=== PATIENT | female | born 1955 | race Caucasian/White ===

== ENCOUNTER → 2016-09-14 | Outpatient (CLI) | payer SELFPAY ==
--- NOTE | 2016-09-15 09:05 | RAD ---
EXAM DESCRIPTION: Abdomen radiography. CLINICAL HISTORY: Renal stone COMPARISON: September 16, 2015 TECHNIQUE: One view. FINDINGS: Bowel gas pattern is non-obstructed. There is no obvious free intraperitoneal air. Visualized segments of the abdominal organs are unremarkable. No suspicious bone lesion or fracture is seen. IMPRESSION: There are bilateral renal calcifications noted. The largest is seen within low the lower pole of left kidney and measures 6 mm in diameter. There is a tiny 2 mm radiodensity overlying the expected course of the left ureter. These are stable in position and size. Electronically signed by: Paras Lowe MD 09/15/2016 09:02
== END | disposition home or self-care (01) ==
LOC: RAD 15:59
PROVIDERS: ATTEND Urology
DX: N20.0 Calculus of kidney (principal)

== ENCOUNTER → 2016-10-06 | Outpatient (CLI) | payer BC, SELFPAY ==
--- NOTE | 2016-10-06 13:09 | MRI ---
Study: MRI of the Left Ankle. Indication: SPRAIN OF UNSPECIFIED LIGAMENT OF LEFT ANKLE Technique: Multiplanar, multi sequence MRI of the left ankle was obtained without intravenous contrast. Comparison: Radiographs September 14, 2016. Findings: An acute to subacute nondisplaced obliquely oriented fracture of the distal fibular diaphysis noted with extensive marrow edema and overlying subjacent edema. Associated syndesmotic injury noted with edema tracking along the distal tibia fibular syndesmosis as well as slight irregularity of the anterior tibiofibular ligament without transection. Remaining lateral and medial ankle ligaments intact. Ankle mortise alignment normal. Talar dome intact. Moderate tibiotalar joint effusion. Mild talonavicular joint osteoarthritis. No coalition. Mild plantar calcaneal heel spurring with minimal plantar fasciitis at the origin of the central cord. Subtle tendinosis and longitudinal fissuring peroneus brevis tendon inferior to the lateral malleolus without transection. Peroneus longus tendon, anterior tendons, Achilles tendon, and medial tendons intact. Impression: Acute to subacute nondisplaced distal fibular fracture with associated syndesmotic injury as above. Peroneus brevis tendinosis and mild longitudinal fissuring. Mild talonavicular joint osteoarthritis. Electronically signed by: Vincent Walton MD 10/06/2016 1:09 PM ENAMELER
== END | disposition home or self-care (01) ==
LOC: MRI 09:01
PROVIDERS: ATTEND Family Medicine
DX: S93.402D Sprain of unspecified ligament of left ankle, subsequent encounter (principal)

== ENCOUNTER → 2016-10-10 | Outpatient (CLI) | payer BC ==
--- NOTE | 2016-10-10 10:13 | RAD ---
EXAM DESCRIPTION: Ankle,Left 3 Views CLINICAL HISTORY: 60 yearsFemale, PAIN COMPARISON: None. IMPRESSION: Three views of the left ankle demonstrate no evidence of fracture. There is some soft tissue swelling about the lateral malleolus which can be seen in setting of a sprain. There is a possibility of a joint effusion with soft tissue density surrounding the joint seen on the lateral radiograph. Inflammatory changes cannot be excluded. Electronically signed by: Paras Lowe MD 10/10/2016 10:13 AM MALTED MILK SUPERVISOR
== END ==
LOC: RAD 09:07
PROVIDERS: ATTEND Orthopaedic Surgery
DX: M25.572 Pain in left ankle and joints of left foot (principal)

== ENCOUNTER → 2016-11-03 | Outpatient (CLI) | payer BC ==
--- NOTE | 2016-11-03 15:01 | RAD ---
EXAM DESCRIPTION: Ankle,Left 3 Views CLINICAL HISTORY: FX COMPARISON: October 10, 2016 IMPRESSION: 3 views of the left ankle show progressive periosteal reaction and cortical thickening indicating interval healing associated with a nondisplaced fracture of the left distal fibula. The fracture is proximal to the ankle mortise. No new fracture or dislocation is seen. There is improved soft tissue swelling of the lateral malleolus compared to previous exam. Improved appearance to joint effusion since previous exam. Small plantar enthesophyte of the calcaneus is seen. Electronically signed by: Galindo Fuchs MD 11/03/2016 3:01 PM CDT
== END | disposition home or self-care (01) ==
LOC: RAD 07:34
PROVIDERS: ATTEND Orthopaedic Surgery
DX: S82.822D Torus fracture of lower end of left fibula, subsequent encounter for fracture with routine healing (principal)

== ENCOUNTER → 2016-11-24 | Outpatient (CLI) | payer BC ==
--- NOTE | 2016-11-25 07:26 | RAD ---
EXAM DESCRIPTION: Ankle,Left 3 Views CLINICAL HISTORY: 61 years Female, FIB FX COMPARISON: November 03, 2016 FINDINGS: 3 views of the left ankle show a healed or healing distal left fibular fracture, stable from the prior exam. No new fracture or malalignment. A left ankle joint effusion is noted, also probably stable. IMPRESSION: Healed or healing distal left fibular fracture and a left ankle joint effusion, all stable from November 03, 2016. No new abnormality. Electronically signed by: Roldan Jackson MD 11/25/2016 7:24 AM CDT
== END | disposition home or self-care (01) ==
LOC: RAD 07:35
PROVIDERS: ATTEND Orthopaedic Surgery
DX: S82.822D Torus fracture of lower end of left fibula, subsequent encounter for fracture with routine healing (principal); X58.XXXA Exposure to other specified factors, initial encounter

== ENCOUNTER → 2017-04-12 | Outpatient (CLI) | payer BC | LOC: GMAB 11:09 | PROVIDERS: ATTEND Family Medicine | DX: Z00.01 Encounter for general adult medical examination with abnormal findings (principal) ==

== ENCOUNTER → 2017-05-01 | Outpatient (CLI) | payer BC ==
--- NOTE | 2017-05-02 09:47 | MAM ---
EXAM DESCRIPTION: 3D Screening BILATERAL CLINICAL HISTORY: 61 yearsFemaleSCREENING no complaints. Sister with breast cancer.. COMPARISON: 2-D digital screening bilateral study 11/06/2014.. No prior reports available. TECHNIQUE: Bilateral CC and MLO projection full-field images, 3-D tomosynthesis digital mammographic technique. Also bilateral synthesized CC/ MLO full-field images. CAD not utilized. FINDINGS: The breast parenchymal density pattern is: Scattered areas of fibroglandular density. No skin thickening or nipple retraction bilateral solitary microcalcifications. No focal, stellate mass or density, focal asymmetry , and no suspicious microcalcifications bilaterally. Stable mammograms compared to prior study, taking into account differences in mammographic technique IMPRESSION: BI-RADS CATEGORY: 2 - BENIGN FINDINGS. FOLLOW UP: Routine digital bilateral screening, one year interval from April 2017. Written communication explaining the IMPRESSION and follow-up, will be mailed to the patient and referring health care provider. According to the [employer], yearly mammograms are recommended starting at age 40 and continuing as long as a woman is in good health. Any breast change noted on a breast self-exam should be reported promptly to the patient's healthcare provider. Breast MRI is recommended for women with an approximately 20-25% or greater lifetime risk of breast cancer, including women with a strong family history of breast or ovarian cancer and women who have been treated for Hodgkin's disease. A negative mammographic report should not delay tissue diagnosis in patients with significant clinical history or physical findings. Extremely dense breast tissue limits the sensitivity of digital mammography. Electronically signed by: Luis Dimas MD 05/02/2017 9:46 AM CDT
== END | disposition home or self-care (01) ==
LOC: MAMMO 08:54
PROVIDERS: ATTEND Family Medicine
DX: Z12.31 Encounter for screening mammogram for malignant neoplasm of breast (principal)
CPT/HCPCS: 77063; G0202

== ENCOUNTER → 2017-05-01 | Outpatient (CLI) | payer BC | END | disposition home or self-care (01) | LOC: GMAB 10:29 | PROVIDERS: ATTEND Family Medicine | DX: E83.52 Hypercalcemia (principal) ==

== ENCOUNTER → 2018-07-17 | Outpatient (CLI) | payer BC, OTHER | LOC: GMAE 11:12 | PROVIDERS: ATTEND Family Medicine | DX: E03.9 Hypothyroidism, unspecified (principal) ==

== ENCOUNTER → 2018-09-19 | Outpatient (CLI) | payer BC, OTHER ==
--- NOTE | 2018-09-19 17:21 | MAM ---
EXAM DESCRIPTION: 3D Screening BILATERAL : Digital Mammography. CLINICAL HISTORY: 62 years Female SCREEN no complaints or personal history of breast cancer. Sister with breast cancer. Childbirth. Postmenopausal. No HRT.. Lifetime risk of developing breast cancer (Tyrer-Cuzick model)(%): 13.1. COMPARISON: Bilateral screening digital breast tomosynthesis 05/01/2017.. No prior reports available. TECHNIQUE: Bilateral CC and MLO projection full-field images, digital tomosynthesis mammographic technique. Bilateral digital 2-D full-field MLO images. CAD not available for tomosynthesis or 2-D images. FINDINGS: The breast parenchymal density pattern is: Heterogeneously dense breast tissue, which may obscure small masses. No skin thickening or nipple retraction. Bilateral solitary microcalcifications. Densities fibroglandular tissues are in the anterior breast bilaterally. Bilateral vascular calcifications. No new focal, stellate mass or density, focal asymmetry , and no suspicious microcalcifications bilaterally. Stable mammograms compared to prior study. IMPRESSION: Benign exam. BIRAD CATEGORY: 2 BENIGN FINDINGS. RECOMMENDATIONS: FOLLOW UP: Routine digital bilateral mammographic screening, one year interval from September 2018. Written communication explaining the IMPRESSION and follow-up, will be mailed to the patient and referring health care provider. According to the [employer], yearly mammograms are recommended starting at age 40 and continuing as long as a woman is in good health. Any breast change noted on a breast self-exam should be reported promptly to the patient's healthcare provider. Breast MRI is recommended for women with an approximately 20-25% or greater lifetime risk of breast cancer, including women with a strong family history of breast or ovarian cancer and women who have been treated for Hodgkin's disease. A negative mammographic report should not delay tissue diagnosis in patients with significant clinical history or physical findings. Extremely dense breast tissue limits the sensitivity of digital mammography. Electronically signed by: Luis Dimas MD 09/19/2018 5:19 PM CHIEF STRATEGY OFFICER
== END ==
LOC: GMAE 11:29
PROVIDERS: ATTEND Family Medicine
DX: Z12.31 Encounter for screening mammogram for malignant neoplasm of breast (principal); E03.9 Hypothyroidism, unspecified

== ENCOUNTER → 2019-06-04 | Outpatient (CLI) | payer BC | LOC: GMAE 11:17 | PROVIDERS: ATTEND Family Medicine | DX: Z00.00 Encounter for general adult medical examination without abnormal findings (principal); E03.9 Hypothyroidism, unspecified; R53.82 Chronic fatigue, unspecified; E78.2 Mixed hyperlipidemia ==

== ENCOUNTER → 2019-12-10 | Outpatient (CLI) | payer MEDICARE, OTHER ==
--- NOTE | 2019-12-11 20:16 | MAM ---
EXAM DESCRIPTION: 3D Screening BILATERAL : Digital Mammography. CLINICAL HISTORY: 64 years Female ANNUAL SCREENING . No complaints. No personal history of breast cancer. Female sibling with breast cancer at age 56. Remote family history of breast cancer. Menarche age 12. Childbirth age 29. Menopause age 49. No HRT. Lifetime risk of developing breast cancer (Tyrer-Cuzick model)(%): 12.3. COMPARISON: Bilateral screening digital breast tomosynthesis September 2018 and April 2017.. TECHNIQUE: Bilateral CC and MLO projection full-field images, digital tomosynthesis mammographic technique. Bilateral digital 2-D full-field MLO images. and CC images. CAD available for 2-D images. FINDINGS: The breast parenchymal density pattern is: Heterogeneously dense breast tissue, which may obscure small masses. No skin thickening or nipple retraction. Solitary microcalcifications. facility coordinator partially visualized on the upper lateral right breast. No new focal, stellate mass or density, focal asymmetry , and no suspicious microcalcifications bilaterally. Stable mammograms compared to prior study. IMPRESSION: Benign exam. BIRAD CATEGORY: 2 BENIGN FINDINGS. RECOMMENDATIONS: FOLLOW UP: Routine digital bilateral mammographic screening, one year interval from December 2019. Written communication explaining the IMPRESSION and follow-up, will be mailed to the patient and referring health care provider. According to the [employer], yearly mammograms are recommended starting at age 40 and continuing as long as a woman is in good health. Any breast change noted on a breast self-exam should be reported promptly to the patient's healthcare provider. Breast MRI is recommended for women with an approximately 20-25% or greater lifetime risk of breast cancer, including women with a strong family history of breast or ovarian cancer and women who have been treated for Hodgkin's disease. A negative mammographic report should not delay tissue diagnosis in patients with significant clinical history or physical findings. Extremely dense breast tissue limits the sensitivity of digital mammography. Electronically signed by: Luis Dimas MD 12/11/2019 8:14 PM CDT
== END ==
LOC: MAMMO 10:00
PROVIDERS: ATTEND Family Medicine
DX: Z12.31 Encounter for screening mammogram for malignant neoplasm of breast (principal)

== ENCOUNTER → 2019-12-25 | Outpatient (CLI) | payer MEDICARE, OTHER ==
--- NOTE | 2019-12-25 16:21 | CT ---
EXAM DESCRIPTION: Abdomen/Pelvis w/wo Contrast CLINICAL HISTORY: 64 years Female, GROSS HEMATURIA COMPARISON: October 21, 2015 and June 20, 2007 TECHNIQUE: Noncontrast multidetector CT imaging of the abdomen and pelvis. Multiplanar reconstructions were generated. This exam was performed according to our departmental dose-optimization program which includes automated exposure control, adjustment of the mA and/or kV according to patient size and/or use of iterative reconstruction technique. FINDINGS: Bilateral central nephrolithiasis is present. No ureteral or bladder stones. There is no hydronephrosis. At least 5 stones are present on the right side with the largest stone measuring 0.7 cm. At least 4 stones are present on the left side with the largest stone measuring 0.8 cm. No aggressive renal lesions are demonstrated. Symmetric renal cortical enhancement. No aggressive liver lesions. No intrahepatic ductal dilatation. The gallbladder is normal in appearance. No pancreatic mass or inflammation. The spleen is normal in appearance. The bilateral adrenal glands are normal. No abdominal or pelvic lymphadenopathy. Reproductive organs are normal. No abnormal bladder residual subtle enhancement. There are no enlarged abdominal or pelvic lymph nodes. No free intraperitoneal fluid or gas is present. The abdominal wall is intact. The vasculature is unremarkable. Advanced degenerative changes of the lumbar spine. IMPRESSION: Central nonobstructing bilateral nephrolithiasis. Electronically signed by: Julio Rodriguez MD 12/25/2019 4:19 PM CDT
== END ==
LOC: CT 14:02
PROVIDERS: ATTEND Urology
DX: N20.0 Calculus of kidney (principal); R31.0 Gross hematuria

== ENCOUNTER → 2020-05-06 | Outpatient (CLI) | payer MEDICARE, OTHER | LOC: LAB.O 14:20 | PROVIDERS: ATTEND Internal Medicine Rheumatology | DX: M15.0 Primary generalized (osteo)arthritis (principal); R53.83 Other fatigue; Z79.899 Other long term (current) drug therapy; Z09 Encounter for follow-up examination after completed treatment for conditions other than malignant neoplasm ==

== ENCOUNTER → 2020-07-14 | Outpatient (CLI) | payer MEDICARE, OTHER | LOC: GMAE 14:16 | PROVIDERS: ATTEND Family Medicine | DX: E03.9 Hypothyroidism, unspecified (principal); E78.2 Mixed hyperlipidemia ==